=== PATIENT | female | born 1955 | race Caucasian/White ===

== ENCOUNTER 2025-04-08 12:11 | Emergency (ER) | payer OTHER, SELFPAY ==
[2025-04-08 13:05] VITALS: BP 159/85; PULSE 70; RESP 18; TEMP 36.8; O2SAT 99
--- NOTE | 2025-04-08 13:07 | XR_ITS ---
Examination:Left hip AP, lateral, AP pelvis 3 views Technique: Hip AP lateral, AP pelvis, 3 views Exam date and time:2024 1342 hours INDICATIONS: Injury to the hip this week, hip pain FINDINGS: No left hip fracture or dislocation Cystic area in the left inferior pubic ramus 14 mm Right hip bones of the pelvis intact IMPRESSION: No acute hip or pelvic fracture Recommend 3 month follow-up AP pelvis 2 confirm stability of 14 mm cyst left inferior pubic ramus.
--- NOTE | 2025-04-08 13:08 | EDNOTE_ITS ---
Lower Extremity Injury RME/HPI General Chief Complaint: Hip Injury/Pain Stated Complaint: TRIPPED & FELL ON L) HIP; PAIN 08/07 Time Seen by Provider: 04/08/25 12:38 Source: patient Arrival date/time: 04/08/25 12:11 69-year-old female with no known medical history presents to the emergency room with a chief complaint of tenderness pain and limited range of motion to her left hip after a ground-level fall that occurred this morning. Mode of arrival: ambulatory Limitations: no limitations Related Data Home Medications ?Medication ?Instructions ?Recorded ?Confirmed estradiol 2 mg (7.5 mcg/24 hour) 1 ea VG [id number] #0 e a 03/06/17 vaginal ring (Estring) Allergies Allergy/AdvReac Type Severity Reaction Status Date / Time No Known Allergies Allergy Verified 04/08/25 12:15 Review of Systems Review of Systems Systems Reviewed: All systems reviewed, normal except as documented Constitutional Constitutional: Reports system reviewed and no additional complaints, except as documented, Denies fatigue, Denies fever(s), Denies headache(s) and Denies weakness Eyes Eyes: Reports system reviewed and no additional complaints, except as documented, Denies blurry vision and Denies change in vision ENT Ears, Nose, Mouth, and Throat: Reports system reviewed and no additional complaints, except as documented, Denies otalgia, Denies headache(s), Denies nasal congestion, Denies throat swelling and Denies vertigo Cardiovascular Cardiovascular: Reports system reviewed and no additional complaints, except as documented, Denies chest pain, Denies dyspnea and Denies dyspnea on exertion Respiratory Respiratory: Reports system reviewed and no additional complaints, except as documented, Denies chest congestion, Denies cough, Denies dyspnea, Denies dyspnea on exertion and Denies wheezing Gastrointestinal Gastrointestinal: Reports system reviewed and no additional complaints, except as documented, Denies abdominal pain, Denies cramping, Denies nausea and Denies vomiting Genitourinary Genitourinary: Reports system reviewed and no additional complaints, except as documented Musculoskeletal Musculoskeletal: Reports system reviewed and no additional complaints, except as documented, Reports abnormal gait, Reports arthralgias and Denies back pain Integumentary/Breasts Skin/Breast: Reports system reviewed and no additional complaints, except as documented and Denies wounds Neurologic Neurologic: Reports system reviewed and no additional complaints, except as documented, Reports abnormal gait, Denies confusion, Denies headache(s), Denies lack of coordination, Denies vertigo and Denies weakness Psychiatric Psychiatric: Reports system reviewed and no additional complaints, except as documented, Denies anxiety, Denies confusion, Denies depression, Denies paranoia, Denies suicidal ideation and Denies tactile hallucinations Endocrine Endocrine: Reports system reviewed and no additional complaints, except as documented and Denies fatigue Hematologic/Lymphatic Hematologic/Lymphatic: Reports system reviewed and no additional complaints, except as documented and Denies lymphadenopathy Allergic/Immunologic Allergic/Immunologic: Reports system reviewed and no additional complaints, except as documented, Denies throat swelling, Denies urticaria and Denies wheezing Past Medical History Past Medical History OTHER HISTORY: Negative Blood Transfusions Social History SMOKING STATUS: Former smoker ED Exam General Limitations: Present no limitations General appearance: Present alert and in no apparent distress Head Head exam: Present atraumatic Eye Eye exam: Present normal appearance, PERRL and EOMI ENT ENT exam: Present normal exam, normal oropharynx and mucous membranes moist Neck Neck exam: Present normal inspection, full ROM and trachea midline Chest Chest inspection: Present normal inspection and symmetric chest wall rise Respiratory Respiratory exam: Present normal lung sounds bilaterally Cardiovascular Cardiovascular exam: Present regular rate, normal rhythm and normal heart sounds Abdominal Exam Abdominal exam: Present soft and normal bowel sounds Extremities Exam Extremities exam: Present normal inspection and full ROM Expanded Lower Extremity Exam Hip/Pelvis exam: Present tenderness and swelling; Absent full ROM Upper leg exam: Present normal inspection Knee exam: Present normal inspection Lower leg exam: Present normal inspection Ankle exam: Present normal inspection Foot/toe exam: Present normal inspection Gait: observed and normal Back Exam Back exam: Present normal inspection and full ROM Neurological Exam Neurological exam: Present alert, oriented X3 and CN II-XII intact Psychiatric Psychiatric exam: Present normal affect and normal mood Skin Skin exam: Present warm, dry, intact and normal color Course Quality Measures none Orders Category Date Time Status XR HIP LT W PELVIS (DO NOT USE) Stat Exams 04/08/25 13:07 Completed HYDROcodone*/APAP 5/325 [[place] 5/325] Med 04/08/25 13:09 Discontinued 1 tab PO X1 ONE Ondansetron Odt [Zofran Odt] Med 04/08/25 13:09 Discontinued 4 mg PO X1 ONE Vital Signs Vital signs: Vital Signs Temperature 98.3 F 04/08/25 13:05 Pulse Rate 70 04/08/25 13:05 Respiratory Rate 18 04/08/25 13:05 Blood Pressure 159/85 H 04/08/25 13:05 Pulse Oximetry (%) 99 04/08/25 13:05 Oxygen Delivery Method Room Air 04/08/25 13:05 O2 saturation 99% with normal limits Extremity Injury, Lower MDM Narrative MDM Narrative:: 69-year-old female with no known medical history presents to the emergency room with a chief complaint of tenderness pain and limited range of motion to her left hip after a ground-level fall that occurred this morning. Patient is hemodynamically stable and in no apparent distress Physical examination shows tenderness and pain with palpation to the patient's left hip. There is no shortening. X-ray of the left hip was completed and is negative for any acute fracture or dislocation. There was an incidental finding of a 14 mm cyst to the left pelvis and a radiologist recommends a 3-month follow-up. The patient was educated about the cyst that they found. During my reevaluation the patient was able to stand up and take some steps and although she was having some mild pain she stated that most of her pain was coming from her groin area Patient was discharged and educated to follow-up with primary care provider in the next 24 to 48 hours and return to the emergency room for any evidence of worsening signs or symptoms Patient data External records reviewed:: [facility] previous records Clinical information provided by:: patient Social determinants that could affect healthcare access:: none Patient has the following chronic illnesses:: No chronic illness How is presenting disease/condition affected by chronic disease/condition?: no chronic disease Evaluation data The following diagnostics were reviewed and interpreted by me:: lab results and radiology exam(s) Lab and/or radiology exams considered but not ordered:: Labs and radiology exams considered and ordered Interpretation Summary: X-ray of the left hip-FINDINGS: No left hip fracture or dislocation Cystic area in the left inferior pubic ramus 14 mm Right hip bones of the pelvis intact IMPRESSION: No acute hip or pelvic fracture Recommend 3 month follow-up AP pelvis 2 confirm stability of 14 mm cyst left inferior pubic ramus. Medications / Prescriptions Medications or Prescriptions considered but not ordered:: Medication given Medication administrations:: Medication Administration History Discontinued Medications Hydrocodone Bitart/Acetaminophen (Hydrocodone/Apap 5/325 Tablet) 1 tab PO X1 ONE Stop: 04/08/25 13:10 Last Admin: 04/08/25 13:22 Dose: Not Given Documented By: JENNIFER Non-Admin Reason: Patient Refused Ondansetron HCl (Ondansetron Odt 4 Mg Tabrap) 4 mg PO X1 ONE; Protocol Stop: 04/08/25 13:10 Last Admin: 04/08/25 13:22 Dose: Not Given Documented By: JENNIFER Non-Admin Reason: Patient Refused Medication given Consultations Consultation(s) initiated? (list below): No Diagnosis Extremity Injury, Lower Differential Diagnosis: other (Hip contusions left hip fracture) Most likely diagnosis given after review of the tests above:: Hip contusion Admission Indicated Admission indicated?: not indicated Admission Request Was there a request for admission?: No Disposition Plan Disposition Plan: Discharge Discharge Attestation Discharge Attestation: The patient and all family members were given an opportunity to ask questions and understood the discharge instructions. Discharge instructions specifically effects, indications for sooner follow up or return to the emergency department, and the expected course of current diagnosis. Patient condition: Stable Discharge Plan Plan Patient Disposition: HOME (Self Care) Discharge Disposition comment: Stable Prescriptions/Referrals Prescriptions/Med Rec: No Action estradiol [Estring] 1 EACH ring 1 ea VG [id number] Qty: 0 Referrals: No Primary/Family,Physician [Primary Care Provider] - In 1 week Problem List Clinical Impression: Contusion of hip Patient/Caregiver Discharge Instructions Education Materials: ED Contusion, Lower Extremity, ED Hip Contusion Additional Instructions: Please follow up with your primary care provider in the next 24-48 hours Xrays of your left hip were negative for any acute fractures there is an incidental finding of a 14 mm cyst in your left pubic bone. For any evidence of worsening signs or symptoms return to the emergency room immediatley Print Language: Spanish Stand Alone Forms: Izabella Award Info., Patient Portal Info Letter PA/HELENA Supervising Physician LINDSAY/HELENA Supervising Physician: Dr. Norris
== END 2025-04-08 14:43 | disposition home or self-care (01) ==
PROVIDERS: Emergency Provider Emergency Medicine
DX: S70.02XA Contusion of left hip, initial encounter (principal); W01.0XXA Fall on same level from slipping, tripping and stumbling without subsequent striking against object, initial encounter
CPT/HCPCS: 73502; 99283